=== PATIENT | male | born 1970 ===

== ENCOUNTER 2017-09-03 12:22 | Emergency (ER) | payer MEDICAID ==
[2017-09-03 12:33] VITALS: RESP 18
[2017-09-03] MEDS ORDERED: Sodium Chloride 0.9% 1,000 ML IV STA (12:41)
--- NOTE | 2017-09-03 12:46 | ED PDOC ---
Arrival/HPI - General Chief Complaint: Cough, Cold, Congestion Time Seen by Provider: 09/03/17 12:40 Historian: Patient - History of Present Illness Narrative History of Present Illness (Text): 09/03/17 12:46 47 y/o male, no significant pmh, nkda, +smoker, c/o nasal congestion/coughing/ fever/bodyache x 2 days. Pt. stated that it started off as nasal congestion, productive coughing, associated with subjective fever at home, no fever in the ER, admits bodyache, no joint pain, no numbness or tingling, no rash, no neck or head pain, no other medical or psychological complaints. Past Medical History - Provider Review Nursing Documentation Reviewed: Yes - Infectious Disease Hx of Infectious Diseases: None - Psychiatric Hx Substance Use: No Family/Social History - Physician Review Nursing Documentation Reviewed: Yes Family/Social History: Unknown Family HX Smoking Status: Heavy Smoker > 10 Cigarettes Daily Hx Alcohol Use: No Hx Substance Use: No Allergies/Home Meds Allergies/Adverse Reactions: Allergies No Known Allergies Allergy (Verified 09/03/17 12:33) Review of Systems - Review of Systems Constitutional: Fatigue, Fevers Eyes: absent: Vision Changes ENT: Rhinorrhea. absent: Hearing Changes, Sore Throat Respiratory: Cough, Sputum. absent: SOB, Wheezing Cardiovascular: absent: Chest Pain Gastrointestinal: absent: Abdominal Pain, Diarrhea, Nausea, Vomiting Musculoskeletal: Myalgias. absent: Arthralgias, Back Pain Skin: absent: Rash, Pruritis Neurological: absent: Headache, Dizziness Psychiatric: absent: Anxiety, Depression, Suicidal Ideation Physical Exam Vital Signs Reviewed: Yes Vital Signs Temp Pulse Resp BP Pulse Ox 09/03/17 14:49 99.2 F 86 18 125/72 97 09/03/17 12:28 98.9 F 100 H 18 122/86 98 Temperature: Afebrile Blood Pressure: Normal Pulse: Regular Respiratory Rate: Normal Appearance: Positive for: Well-Appearing, Non-Toxic, Comfortable Pain Distress: Mild Mental Status: Positive for: Alert and Oriented X 3 - Systems Exam Head: Present: Atraumatic, Normocephalic Pupils: Present: PERRL Extroacular Muscles: Present: EOMI Conjunctiva: Present: Normal Mouth: Present: Moist Mucous Membranes Neck: Present: Normal Range of Motion, Trachea Midline. No: Meningeal Signs, MIDLINE TENDERNESS, Paraspinal Tenderness, Lymphadenopathy Respiratory/Chest: Present: Clear to Auscultation, Good Air Exchange. No: Respiratory Distress, Accessory Muscle Use Cardiovascular: Present: Regular Rate and Rhythm, Normal S1, S2. No: Murmurs Abdomen: Present: Normal Bowel Sounds. No: Tenderness, Distention, Peritoneal Signs Back: Present: Normal Inspection. No: CVA Tenderness, Midline Tenderness, Paraspinal Tenderness Upper Extremity: Present: Normal Inspection. No: Cyanosis, Edema Lower Extremity: Present: Normal Inspection. No: Edema Neurological: Present: GCS=15, Speech Normal, Motor Func Grossly Intact, Gait Normal, Memory Normal Skin: Present: Warm, Dry, Normal Color. No: Rashes Psychiatric: Present: Alert, Oriented x 3, Normal Insight, Normal Concentration Medical Decision Making ED Course and Treatment: 09/03/17 12:48 -labs/rapid flu -chest xray -IVF/toradol -observe and reassess 09/03/17 16:08 -labs are non-significant -Rapid flu is negative with clinical suspicious is moderate to high. -Chest xray show no active disease -Pt. feels much better after the IVF supportive care treatment. -Discharge home with tamiflu, tessalon, motrin, bed rest, follow up with your own pmd within2 days, return to the ER for any new or worsening signs or symptoms. - Lab Interpretations Lab Results: 09/03/17 13:50 09/03/17 13:50 Lab Results 09/03/17 13:50: WBC 5.6, RBC 5.64, Hgb 16.6, Hct 49.5, MCV 87.8, MCH 29.4, MCHC 33.5, RDW 12.9, Plt Count 179, MPV 11.5 H, Gran % 57.7, Lymph % (Auto) 26.0, [place] % (Auto) 15.4 H, Eos % (Auto) 0.2 L, Baso % (Auto) 0.7, Gran # 3.21, Lymph # (Auto) 1.5, [place] # (Auto) 0.9 H, Eos # (Auto) 0.0, Baso # (Auto) 0.04 09/03/17 13:50: Sodium 138, Potassium 4.6, Chloride 97 L, Carbon Dioxide 26, Anion Gap 19, BUN 14, Creatinine 1.4, Est GFR ( Amer) > 60, Est GFR (Non- Af Amer) 54, Random Glucose 108, Calcium 9.6, Total Bilirubin 0.7, AST 37, ALT 51, Alkaline Phosphatase 94, Total Protein 8.8 H, Albumin 4.5, Globulin 4.3, Albumin/Globulin Ratio 1.0 L 09/03/17 13:41: Influenza Typ A,B (EIA) Negative for flu a/b - RAD Interpretation Radiology Orders: 09/03/17 12:41 CHEST TWO VIEWS (PA/LAT) [RAD] Stat HISTORY: cough/bodyache COMPARISON: No prior. TECHNIQUE: Chest PA and lateral FINDINGS: LUNGS: No active pulmonary disease. PLEURA: No significant pleural effusion identified. No pneumothorax apparent. CARDIOVASCULAR: No radiographic findings to suggest acute or significant cardiovascular disease. OSSEOUS STRUCTURES: No significant abnormalities. VISUALIZED UPPER ABDOMEN: Normal. OTHER FINDINGS: None. IMPRESSION: No active disease. - Medication Orders Current Medication Orders: Discontinued Medications Sodium Chloride (Sodium Chloride 0.9%) 1,000 mls @ 999 mls/hr IV .Q1H1M STA Stop: 09/03/17 13:41 Last Admin: 09/03/17 13:29 Dose: 999 mls/hr eMAR Start Stop Document 09/03/17 13:29 OCS (Rec: 09/03/17 13:29 OCS [id number]) Intravenous Solution Start Date 09/03/17 Start Time 13:29 End Date 09/03/17 End time 14:30 Total Infusion Time 61 Ketorolac Tromethamine (Toradol) 30 mg IVP STAT STA Stop: 09/03/17 12:42 Last Admin: 09/03/17 13:29 Dose: 30 mg MAR Pain Assessment Document 09/03/17 13:29 OCS (Rec: 09/03/17 13:29 OCS [id number]) Pain Reassessment Is this a pain reassessment? Yes Sleep Is patient sleeping during reassessment? 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 Disposition/Present on Arrival - Present on Arrival Any Indicators Present on Arrival: No History of DVT/PE: No History of Uncontrolled Diabetes: No Urinary Catheter: No History of Decub. Ulcer: No History Surgical Site Infection Following: None - Disposition Have Diagnosis and Disposition been Completed?: Yes Diagnosis: Flu-like symptoms Disposition: HOME/ ROUTINE Disposition Time: 12:48 Patient Plan: Discharge Patient Problems: Current Active Problems Problem Status Onset Flu-like symptoms Acute Condition: IMPROVED Additional Instructions: -Discharge home with tamiflu, tessalon, motrin, bed rest, follow up with your own pmd within2 days, return to the ER for any new or worsening signs or symptoms. Prescriptions: Benzonatate [Tessalon Perles] 100 mg PO TID PRN #30 sgl PRN Reason: Other Ibuprofen [Motrin] 600 mg PO QID PRN #30 tab PRN Reason: Other Oseltamivir [Tamiflu] 75 mg PO BID #10 cap Forms: WORK NOTE
[2017-09-03 14:01] LABS: BASO # 0.04 K/mm3 (0.0-2.0); BASO % 0.7 % (0.0-3.0); EOS % 0.2 % (1.5-5.0); GRAN # 3.21 (1.4-6.5); GRAN % 57.7 % (50.0-68.0); HEMOGLOBIN 16.6 g/dL (14.0-18.0); LYMPH # 1.5 (1.2-3.4); MEAN CELL VOLUME 87.8 fl (80.0-105.0); MEAN CORPUSCULAR HEMOGLOBIN 29.4 pg (25.0-35.0); MEAN CORPUSCULAR HGB CONC 33.5 g/dl (31.0-37.0); MEAN PLATELET VOLUME 11.5 fl (7.0-11.0); MONO # 0.9 (0.1-0.6); MONO % 15.4 % (1.0-6.0); RBC 5.64 10^6/uL (3.5-6.1); RED CELL DISTRIBUTION WIDTH 12.9 % (11.5-14.5); WHITE BLOOD COUNT 5.6 10^3/ul (4.5-11.0)
[2017-09-03 14:08] LABS: ALBUMIN 4.5 g/dL (3.0-4.8); ALT/SGPT 51 U/L (7-56); AST/SGOT 37 U/L (17-59); BLOOD UREA NITROGEN 14 mg/dL (7-21); CALCIUM 9.6 mg/dL (8.4-10.5); GFR AFRICAN-AMERICAN > 60; GFR NON-AFRICAN AMERICAN 54
--- NOTE | 2017-09-03 15:49 | RAD ---
HISTORY: cough/bodyache COMPARISON: No prior. TECHNIQUE: Chest PA and lateral FINDINGS: LUNGS: No active pulmonary disease. PLEURA: No significant pleural effusion identified. No pneumothorax apparent. CARDIOVASCULAR: No radiographic findings to suggest acute or significant cardiovascular disease. OSSEOUS STRUCTURES: No significant abnormalities. VISUALIZED UPPER ABDOMEN: Normal. OTHER FINDINGS: None. IMPRESSION: No active disease. Concordant results with the preliminary interpretation rendered by the emergency department physician procedure.
[2017-09-03 21:48] VITALS: BP 114/66; PULSE 88; TEMP 99; O2SAT 100
== END 2017-09-03 16:40 | disposition home or self-care (01) ==
LOC: ED 12:22
DX: J11.1 Influenza due to unidentified influenza virus with other respiratory manifestations (principal); F17.210 Nicotine dependence, cigarettes, uncomplicated
CPT/HCPCS: 71046; 80053; 85025; 87804; 96361; 96374; 99283; J1885; J7040